=== PATIENT | female | born 1970 | race Two or more races ===

== ENCOUNTER 2020-10-16 18:14 | Inpatient (IN) | payer OTHER ==
[~2020-10-16] VITALS: Ht 160 cm; Wt 77.1 kg
== END 2020-10-21 12:56 | disposition home or self-care (01) | DRG 392 ==
LOC: ER 18:14 → MEDJ 10-17 10:05 → SEC-K 10-17 10:05 → MEDJ 10-17 14:14
PROVIDERS: ADMIT Internal Medicine; ATTEND Internal Medicine
PROC: BW21ZZZ Computerized Tomography (CT Scan) of Abdomen and Pelvis (ICD-10-PCS; principal; 2020-10-16)
PROC: 4A033R1 Measurement of Arterial Saturation, Peripheral, Percutaneous Approach (ICD-10-PCS; 2020-10-18)
PROC: B24BZZZ Ultrasonography of Heart with Aorta (ICD-10-PCS; 2020-10-18)
DX: K52.89 Other specified noninfective gastroenteritis and colitis (principal); K92.1 Melena; C56.9 Malignant neoplasm of unspecified ovary; C78.6 Secondary malignant neoplasm of retroperitoneum and peritoneum; K55.9 Vascular disorder of intestine, unspecified; Z20.822 Contact with and (suspected) exposure to COVID-19; R06.02 Shortness of breath; D72.828 Other elevated white blood cell count; E87.6 Hypokalemia; I99.8 Other disorder of circulatory system; R10.2 Pelvic and perineal pain; R10.9 Unspecified abdominal pain

== ENCOUNTER 2023-01-21 21:19 | Inpatient (IN) | payer OTHER ==
[~2023-01-21] VITALS: Ht 162.6 cm; Wt 59.9 kg
--- NOTE | 2023-01-21 21:32 | NUR ---
SE RECIBE FEMINA ALERTA Y ORIENTADA X3 EN AMBULANCIA QUIEN REFIERE DOLOR ABDOMINAL DESDE OLGA. PTE CON CA DE OVARIOS. PTE DE DR DOROTEO TREJO. SE MIDEN S/V Y SE UBICA.
--- NOTE | 2023-01-22 00:17 | NUR ---
Zackary BENAVIDEZ EDUCA A PTE SOBRE TX MEDICO. SE LIA MUESTRAS DE LABORATORIO UTILIZANDO MEDIDAS ASEPTICAS. SE COLOCA H/L MANUEL DE EDEMA. SE ADMINISTRAN MEDICAMENTOS LOS CUALES TOLERA. PTE SE COTNINUA MONITORIANDO POR CAMBIOS.
--- NOTE | 2023-01-22 01:42 | NUR ---
RN BENAVIDEZ COLOCA SONDA URINARIA A PACIENTE POR ORDEN MEDICA BAJO MEDIDAS ESTERILES, YA QUE PACIENTE NO PUEDE PONERSE EN PIE Y CAMINAR.
--- NOTE | 2023-01-22 06:19 | NUR ---
PTE REFIERE PRESENTAR DOLOR SE LE PRESENTA A DOCTOR EL CUAL COLOCA ORDEN DE MEDICAMENTO, SE LE COLOCA MEDICAMENTO ROBERTO ORDEN MEDICA.
--- NOTE | 2023-01-22 07:11 | NUR ---
SE RECIBE PTE ALERTA Y ORIENTADA EN DOMINIQUE BAJA CON BARANDAS ELEVADAS POR SEGURIDAD. SE OBSERVA CON BUEN PATRON RESPIRATORIO. PTE RECIBIENDO IV FLUIDS ORDENADOS. AREA DE VENOPUNCION MANUEL DE EDEMA Y ERITEMA. PEND CONS. LOPEZ LAUREN.
[2023-01-28] MEDS ORDERED: ZEJULA100 MG (08:44)
[2023-01-28] MEDS ORDERED: DEXAMETHASONE4 MG (08:44)
[2023-02-04] MEDS ORDERED: GLYCOPYRROLATE2 MG PO (14:15)
[2023-02-04] MEDS ORDERED: AMOX1TAB5 PO (14:15)
[2023-02-04] MEDS ORDERED: PRE PROTEIN1 EACH PO (14:15)
[2023-02-04] MEDS ORDERED: PROTONIX40 MG PO (14:15)
== END 2023-02-04 15:39 | disposition home or self-care (01) | DRG 843 ==
LOC: ER 21:19 → MEDI 01-22 11:18 → SEC-K 01-22 11:18 → MEDI 01-22 12:04 → MEDJ 01-22 17:55
PROVIDERS: General Practice; Internal Medicine; ADMIT Internal Medicine; ATTEND Internal Medicine
PROC: BW21YZZ Computerized Tomography (CT Scan) of Abdomen and Pelvis using Other Contrast (ICD-10-PCS; principal; 2023-01-21)
PROC: 02HV33Z Insertion of Infusion Device into Superior Vena Cava, Percutaneous Approach (ICD-10-PCS; 2023-01-23)
PROC: 3E0436Z Introduction of Nutritional Substance into Central Vein, Percutaneous Approach (ICD-10-PCS; 2023-01-23)
PROC: 30243N1 Transfusion of Nonautologous Red Blood Cells into Central Vein, Percutaneous Approach (ICD-10-PCS; 2023-01-23)
PROC: BW21YZZ Computerized Tomography (CT Scan) of Abdomen and Pelvis using Other Contrast (ICD-10-PCS; 2023-02-01)
DX: C79.89 Secondary malignant neoplasm of other specified sites (principal); K65.1 Peritoneal abscess; C56.9 Malignant neoplasm of unspecified ovary; K63.2 Fistula of intestine; L03.311 Cellulitis of abdominal wall; E87.0 Hyperosmolality and hypernatremia; C78.6 Secondary malignant neoplasm of retroperitoneum and peritoneum; G89.3 Neoplasm related pain (acute) (chronic); D64.89 Other specified anemias; D63.0 Anemia in neoplastic disease; B96.20 Unspecified Escherichia coli [E. coli] as the cause of diseases classified elsewhere; B96.89 Other specified bacterial agents as the cause of diseases classified elsewhere; E87.6 Hypokalemia; Z92.21 Personal history of antineoplastic chemotherapy; Z90.13 Acquired absence of bilateral breasts and nipples

== ENCOUNTER 2023-02-05 22:05 | Inpatient (IN) | payer OTHER ==
[~2023-02-05] VITALS: Ht 162.6 cm; Wt 49.9 kg
[~2023-02-05 22:05] MED LIST: AMOX1TAB5 PO; DEXAMETHASONE4 MG; GLYCOPYRROLATE2 MG PO; PRE PROTEIN1 EACH PO; PROTONIX40 MG PO; ZEJULA100 MG
[2023-02-06] MEDS ORDERED: PANTOPRAZOLE SO40 MG (13:23)
[2023-02-06] MEDS ORDERED: DEXAMETHASONE4 MG (13:24)
[2023-02-06] MEDS ORDERED: ZEJULA100 MG (13:24)
[2023-02-24] MEDS ORDERED: PANTOPRAZOLE SO40 MG PO (12:37)
[2023-02-24] MEDS ORDERED: SIMETHICONE125 M1 PO (12:37)
[2023-02-24] MEDS ORDERED: INTESTINEX680 M1 PO (12:37)
[2023-02-24] MEDS ORDERED: DEXAMETHASONE4 MG PO (12:38)
== END 2023-02-24 16:24 | disposition home or self-care (01) | DRG 981 ==
LOC: ER 22:05 → SEC-K 02-06 10:17 → SURH 02-06 10:17 → MEDI 02-06 11:50 → SEC-K 02-06 14:23 → SURH 02-06 14:57
PROVIDERS: General Practice; ADMIT Internal Medicine; ATTEND Internal Medicine
PROC: 02HV33Z Insertion of Infusion Device into Superior Vena Cava, Percutaneous Approach (ICD-10-PCS; 2023-02-06)
PROC: 0JD80ZZ Extraction of Abdomen Subcutaneous Tissue and Fascia, Open Approach (ICD-10-PCS; principal; 2023-02-13)
DX: C78.6 Secondary malignant neoplasm of retroperitoneum and peritoneum (principal); K65.1 Peritoneal abscess; C56.9 Malignant neoplasm of unspecified ovary; K63.2 Fistula of intestine; E86.0 Dehydration; K52.89 Other specified noninfective gastroenteritis and colitis; E87.6 Hypokalemia; I10 Essential (primary) hypertension

== ENCOUNTER 2023-03-03 06:41 | Emergency (ER) | payer OTHER ==
[~2023-03-03] VITALS: Ht 162.6 cm; Wt 58.1 kg
[~2023-03-03 06:41] MED LIST changes: +DEXAMETHASONE4 MG PO; +INTESTINEX680 M1 PO; +PANTOPRAZOLE SO40 MG; +PANTOPRAZOLE SO40 MG PO; +SIMETHICONE125 M1 PO
[2023-03-03 10:57] LABS: HEMATOCRIT 27.6 % (36.0-45.00); HEMOGLOBIN 9.3 g/dL (12.0-15.00); MEAN CELL VOLUME 82.4 fL (80.00-100.00); MEAN CORPUSCULAR HEMOGLOBIN 27.8 pg (27.00-32.0); MEAN CORPUSCULAR HGB CONC 33.7 g/dl (32.0-36.0); PLATELET COUNT 264 K/uL (150-450); RED BLOOD COUNT 3.34 M/uL (4.00-6.00); RED CELL DISTRIBUTION WIDTH 18.2 % (11.5-14.5)
[2023-03-03 11:09] LABS: CALCIUM 8.6 mg/dL (8.5-10.1); CREATININE SERUM 0.55 mg/dL (0.55-1.02); GFR 114.75; POTASSIUM 3.27 mEq/L (3.5-5.1)
[2023-03-03 11:44] LABS: PARTIAL THROMBOPLASTIN TIME 27.8 SECONDS (22.0-34.0)
== END 2023-03-03 19:56 | disposition home or self-care (01) ==
LOC: ER 06:41
PROVIDERS: Emergency Medicine
DX: L98.8 Other specified disorders of the skin and subcutaneous tissue (principal); Z88.8 Allergy status to other drugs, medicaments and biological substances

== ENCOUNTER 2023-03-05 12:41 | Inpatient (IN) | payer OTHER ==
[~2023-03-05] VITALS: Ht 152.4 cm; Wt 58.1 kg
[2023-03-05 15:33] LABS: HEMATOCRIT 29.4 % (36.0-45.00); HEMOGLOBIN 9.4 g/dL (12.0-15.00); MEAN CORPUSCULAR HEMOGLOBIN 26.8 pg (27.00-32.0); MEAN CORPUSCULAR HGB CONC 31.9 g/dl (32.0-36.0); PLATELET COUNT 316 K/uL (150-450); RED BLOOD COUNT 3.51 M/uL (4.00-6.00); RED CELL DISTRIBUTION WIDTH 17.9 % (11.5-14.5)
[2023-03-05 15:59] LABS: INR 1.07; PARTIAL THROMBOPLASTIN TIME 27.9 SECONDS (22.0-34.0); PROTHROMBIN TIME 11.2 SECONDS (9.0-11.5)
[2023-03-05 16:03] LABS: ALBUMIN 2.1 gm/dL (3.4-5.0); BILIRUBIN TOTAL 0.29 mg/dL (0.3-1.2); CREATININE SERUM 0.62 mg/dL (0.55-1.02); GFR 99.93; GLOBULINA 4.5 G/DL (2.4-3.5); POTASSIUM 3.23 mEq/L (3.5-5.1); TOTAL PROTEIN 6.6 gm/dL (6.4-8.2)
[2023-03-05 20:58] LABS: URINE APPEARANCE Clear; URINE BILIRRUBIN Negative (NEGATIVE); URINE BLOOD Negative; URINE COLOR Dark Yellow; URINE GLUCOSE Negative (NEGATIVE); URINE LEUKOCYTE Negative; URINE NITRATE Negative; URINE PROTEIN 30 (NEGATIVE); URINE UROBILINOGEN 0.2 E.U./dl
[2023-03-05 21:00] LABS: URINE BACTERIA 38.6 uL (0.0-1933); URINE EPITHELIAL CELLS 13.9 uL (0.0-38.8); URINE RBC 14.8 uL (0.0-20.8); URINE WBC 9.5 uL (0.0-23.2)
[2023-03-06 15:08] LABS: CREATININE SERUM 0.48 mg/dL (0.55-1.02); GFR 134.27; POTASSIUM 3.53 mEq/L (3.5-5.1)
[2023-03-09 08:07] LABS: HEMATOCRIT 28.2 % (36.0-45.00); HEMOGLOBIN 9.4 g/dL (12.0-15.00); MEAN CELL VOLUME 83.6 fL (80.00-100.00); MEAN CORPUSCULAR HEMOGLOBIN 27.8 pg (27.00-32.0); MEAN CORPUSCULAR HGB CONC 33.3 g/dl (32.0-36.0); PLATELET COUNT 312 K/uL (150-450); RED BLOOD COUNT 3.37 M/uL (4.00-6.00); RED CELL DISTRIBUTION WIDTH 17.7 % (11.5-14.5)
[2023-03-09 08:25] LABS: INR 1.04; PARTIAL THROMBOPLASTIN TIME 26.3 SECONDS (22.0-34.0); PROTHROMBIN TIME 10.9 SECONDS (9.0-11.5)
[2023-03-09 08:35] LABS: ALBUMIN 2.1 gm/dL (3.4-5.0); BILIRUBIN TOTAL 0.31 mg/dL (0.3-1.2); BILIRUBIN,CONJUGATED 0.12 mg/dL (0.0-0.2); BILIRUBIN,UNCONJUGATED 0.19 mg/dL (0.0-0.6); CALCIUM 8.2 mg/dL (8.5-10.1); CHOL HDL RATIO 4.9 (0-5.0); CREATININE SERUM 0.46 mg/dL (0.55-1.02); GFR 141.03; MAGNESIUM 1.9 mg/dL (1.8-2.4); POTASSIUM 3.43 mEq/L (3.5-5.1); TOTAL PROTEIN 5.8 gm/dL (6.4-8.2)
[2023-03-11 08:27] LABS: HEMATOCRIT 26.3 % (36.0-45.00); MEAN CELL VOLUME 82.9 fL (80.00-100.00); MEAN CORPUSCULAR HGB CONC 33.8 g/dl (32.0-36.0); PLATELET COUNT 286 K/uL (150-450); RED BLOOD COUNT 3.17 M/uL (4.00-6.00); RED CELL DISTRIBUTION WIDTH 17.4 % (11.5-14.5)
[2023-03-11 08:40] LABS: HEMOGLOBIN 8.9 g/dL (12.0-15.00)
[2023-03-11 08:46] LABS: CALCIUM 7.7 mg/dL (8.5-10.1); CREATININE SERUM 0.47 mg/dL (0.55-1.02); GFR 137.57; POTASSIUM 3.88 mEq/L (3.5-5.1)
[2023-03-13 11:22] LABS: HEMATOCRIT 26.7 % (36.0-45.00); MEAN CELL VOLUME 84.2 fL (80.00-100.00); MEAN CORPUSCULAR HGB CONC 32.2 g/dl (32.0-36.0); PLATELET COUNT 302 K/uL (150-450); RED BLOOD COUNT 3.17 M/uL (4.00-6.00); RED CELL DISTRIBUTION WIDTH 17.5 % (11.5-14.5)
[2023-03-13 11:24] LABS: HEMOGLOBIN 8.6 g/dL (12.0-15.00); MEAN CORPUSCULAR HEMOGLOBIN 27.1 pg (27.00-32.0)
[2023-03-13 11:54] LABS: ALBUMIN 1.8 gm/dL (3.4-5.0); BILIRUBIN TOTAL 0.28 mg/dL (0.3-1.2); CALCIUM 7.8 mg/dL (8.5-10.1); CREATININE SERUM 0.49 mg/dL (0.55-1.02); GFR 131.12; GLOBULINA 3.4 G/DL (2.4-3.5); POTASSIUM 3.94 mEq/L (3.5-5.1); TOTAL PROTEIN 5.2 gm/dL (6.4-8.2)
[2023-03-16 15:08] LABS: HEMATOCRIT 30.2 % (36.0-45.00); HEMOGLOBIN 9.4 g/dL (12.0-15.00); MEAN CELL VOLUME 84.6 fL (80.00-100.00); MEAN CORPUSCULAR HEMOGLOBIN 26.3 pg (27.00-32.0); MEAN CORPUSCULAR HGB CONC 31.1 g/dl (32.0-36.0); PLATELET COUNT 317 K/uL (150-450); RED BLOOD COUNT 3.58 M/uL (4.00-6.00); RED CELL DISTRIBUTION WIDTH 17.7 % (11.5-14.5)
[2023-03-16 15:33] LABS: ALBUMIN 1.8 gm/dL (3.4-5.0); BILIRUBIN TOTAL 0.46 mg/dL (0.3-1.2); BILIRUBIN,CONJUGATED 0.22 mg/dL (0.0-0.2); BILIRUBIN,UNCONJUGATED 0.24 mg/dL (0.0-0.6); CALCIUM 7.9 mg/dL (8.5-10.1); CHOL HDL RATIO 3.1 (0-5.0); CREATININE SERUM 0.65 mg/dL (0.55-1.02); GFR 94.63; GLOBULINA 3.6 G/DL (2.4-3.5); POTASSIUM 3.61 mEq/L (3.5-5.1); TOTAL PROTEIN 5.4 gm/dL (6.4-8.2)
[2023-03-16 18:45] LABS: INR 1.04; PARTIAL THROMBOPLASTIN TIME 29.9 SECONDS (22.0-34.0); PROTHROMBIN TIME 10.9 SECONDS (9.0-11.5)
[2023-03-20 08:28] LABS: HEMATOCRIT 24.7 % (36.0-45.00); MEAN CELL VOLUME 82.3 fL (80.00-100.00); MEAN CORPUSCULAR HGB CONC 33.9 g/dl (32.0-36.0); PLATELET COUNT 162 K/uL (150-450); RED CELL DISTRIBUTION WIDTH 18.1 % (11.5-14.5)
[2023-03-20 08:35] LABS: HEMOGLOBIN 8.4 g/dL (12.0-15.00)
[2023-03-20 08:52] LABS: ALBUMIN 1.6 gm/dL (3.4-5.0); BILIRUBIN TOTAL 0.27 mg/dL (0.3-1.2); CREATININE SERUM 0.78 mg/dL (0.55-1.02); GFR 76.68; GLOBULINA 3.5 G/DL (2.4-3.5); POTASSIUM 3.29 mEq/L (3.5-5.1); TOTAL PROTEIN 5.1 gm/dL (6.4-8.2)
[2023-03-22 09:02] LABS: ALBUMIN 1.7 gm/dL (3.4-5.0); CALCIUM 8.2 mg/dL (8.5-10.1); CREATININE SERUM 0.57 mg/dL (0.55-1.02); GFR 110.12; MAGNESIUM 2.2 mg/dL (1.8-2.4); PHOSPHOROUS 2.3 mg/dL (2.5-4.9); POTASSIUM 3.41 mEq/L (3.5-5.1)
[2023-03-23 08:35] LABS: HEMATOCRIT 24.9 % (36.0-45.00); MEAN CELL VOLUME 82.7 fL (80.00-100.00); MEAN CORPUSCULAR HEMOGLOBIN 27.5 pg (27.00-32.0); MEAN CORPUSCULAR HGB CONC 33.2 g/dl (32.0-36.0); PLATELET COUNT 153 K/uL (150-450); RED BLOOD COUNT 3.01 M/uL (4.00-6.00); RED CELL DISTRIBUTION WIDTH 18.2 % (11.5-14.5)
[2023-03-23 08:54] LABS: HEMOGLOBIN 8.3 g/dL (12.0-15.00)
[2023-03-23 09:06] LABS: INR 1.08; PROTHROMBIN TIME 11.3 SECONDS (9.0-11.5)
[2023-03-23 09:10] LABS: ALBUMIN 1.6 gm/dL (3.4-5.0); BILIRUBIN TOTAL 0.28 mg/dL (0.3-1.2); BILIRUBIN,CONJUGATED 0.12 mg/dL (0.0-0.2); BILIRUBIN,UNCONJUGATED 0.16 mg/dL (0.0-0.6); CHOL HDL RATIO 4.7 (0-5.0); CREATININE SERUM 0.54 mg/dL (0.55-1.02); GFR 117.21; GLOBULINA 3.3 G/DL (2.4-3.5); MAGNESIUM 1.9 mg/dL (1.8-2.4); POTASSIUM 3.42 mEq/L (3.5-5.1); TOTAL PROTEIN 4.9 gm/dL (6.4-8.2)
[2023-03-23 09:15] LABS: UREA CLEARANCE 48.6 ML/MIN
[2023-03-26 10:37] LABS: HEMATOCRIT 33.6 % (36.0-45.00); HEMOGLOBIN 10.8 g/dL (12.0-15.00); MEAN CELL VOLUME 83.3 fL (80.00-100.00); MEAN CORPUSCULAR HEMOGLOBIN 26.9 pg (27.00-32.0); MEAN CORPUSCULAR HGB CONC 32.2 g/dl (32.0-36.0); RED BLOOD COUNT 4.03 M/uL (4.00-6.00); RED CELL DISTRIBUTION WIDTH 16.9 % (11.5-14.5)
[2023-03-26 11:01] LABS: ALBUMIN 1.6 gm/dL (3.4-5.0); BILIRUBIN TOTAL 0.74 mg/dL (0.3-1.2); CALCIUM 7.9 mg/dL (8.5-10.1); CREATININE SERUM 0.86 mg/dL (0.55-1.02); GFR 68.51; GLOBULINA 2.9 G/DL (2.4-3.5); POTASSIUM 3.34 mEq/L (3.5-5.1); TOTAL PROTEIN 4.5 gm/dL (6.4-8.2)
[2023-03-26 11:21] LABS: PLATELET COUNT 66 K/uL (150-450)
[2023-03-28 08:51] LABS: ALBUMIN 3.2 gm/dL (3.4-5.0); ALKALINE PHOSPHATASE 71 U/L (50-136); ALT/SGPT 11 U/L (12-78); ANION GAP 15 (10.0-20.0); BILIRUBIN TOTAL 0.64 mg/dL (0.3-1.2); BLOOD UREA NITROGEN 18 mg/dL (7-18); BUN CREA RATIO 28 (7.0-25.0); CALCIUM 8.3 mg/dL (8.5-10.1); CARBON DIOXIDE 33 mEq/L (21-32); CHLORIDE 93 mmol/L (98-107); CREATININE SERUM 0.64 mg/dL (0.55-1.02); GFR 96.34; GLOBULINA 1.8 G/DL (2.4-3.5); GLUCOSE FASTING 168 mg/dL (65-100); OSMOLALITY SERUM 281 MOSM/KG (275-295); PHOSPHOROUS 2.7 mg/dL (2.5-4.9); POTASSIUM 3.03 mEq/L (3.5-5.1); SODIUM 138 mmol/L (136-145)
[2023-03-28 08:55] LABS: AST/SGOT < 3 U/L (15-37)
[2023-03-28 11:32] LABS: MEAN CELL VOLUME 83.4 fL (80.00-100.00); MEAN CORPUSCULAR HGB CONC 34.3 g/dl (32.0-36.0); RED BLOOD COUNT 3.11 M/uL (4.00-6.00); RED CELL DISTRIBUTION WIDTH 17.1 % (11.5-14.5)
[2023-03-28 12:03] LABS: MEAN CORPUSCULAR HEMOGLOBIN 28.6 pg (27.00-32.0)
[2023-03-28 12:05] LABS: HEMOGLOBIN 8.9 g/dL (12.0-15.00)
[2023-03-28 12:17] LABS: PLATELET COUNT 23 K/uL (150-450)
[2023-03-29 08:08] LABS: CALCIUM 9.1 mg/dL (8.5-10.1); CREATININE SERUM 0.71 mg/dL (0.55-1.02); GFR 85.46; POTASSIUM 3.3 mEq/L (3.5-5.1)
[2023-03-29 08:48] LABS: HEMATOCRIT 33.1 % (36.0-45.00); HEMOGLOBIN 10.8 g/dL (12.0-15.00); MEAN CELL VOLUME 84.2 fL (80.00-100.00); MEAN CORPUSCULAR HEMOGLOBIN 27.5 pg (27.00-32.0); MEAN CORPUSCULAR HGB CONC 32.7 g/dl (32.0-36.0); RED BLOOD COUNT 3.93 M/uL (4.00-6.00)
[2023-03-29 10:04] LABS: PLATELET COUNT 15 K/uL (150-450)
[2023-03-30 06:44] LABS: INR 1.24; PARTIAL THROMBOPLASTIN TIME 25.7 SECONDS (22.0-34.0); PROTHROMBIN TIME 12.8 SECONDS (9.0-11.5)
[2023-03-30 06:50] LABS: ALBUMIN 3.2 gm/dL (3.4-5.0); BILIRUBIN TOTAL 0.78 mg/dL (0.3-1.2); BILIRUBIN,CONJUGATED 0.28 mg/dL (0.0-0.2); BILIRUBIN,UNCONJUGATED 0.5 mg/dL (0.0-0.6); CALCIUM 8.7 mg/dL (8.5-10.1); CREATININE SERUM 0.91 mg/dL (0.55-1.02); GFR 64.18; GLOBULINA 2.3 G/DL (2.4-3.5); MAGNESIUM 2.2 mg/dL (1.8-2.4); POTASSIUM 3.94 mEq/L (3.5-5.1); TOTAL PROTEIN 5.5 gm/dL (6.4-8.2)
[2023-03-30 07:06] LABS: HEMATOCRIT 26.9 % (36.0-45.00); HEMOGLOBIN 9.1 g/dL (12.0-15.00); MEAN CELL VOLUME 83.6 fL (80.00-100.00); MEAN CORPUSCULAR HEMOGLOBIN 28.4 pg (27.00-32.0); MEAN CORPUSCULAR HGB CONC 33.9 g/dl (32.0-36.0); RED BLOOD COUNT 3.22 M/uL (4.00-6.00); RED CELL DISTRIBUTION WIDTH 17.2 % (11.5-14.5)
[2023-03-30 08:24] LABS: PLATELET COUNT 8 K/uL (150-450)
[2023-03-31 14:24] LABS: CALCIUM 8.2 mg/dL (8.5-10.1); CREATININE SERUM 1.05 mg/dL (0.55-1.02); GFR 54.41; POTASSIUM 4.32 mEq/L (3.5-5.1)
[2023-04-01 02:35] LABS: MEAN CELL VOLUME 85.7 fL (80.00-100.00); MEAN CORPUSCULAR HGB CONC 33.2 g/dl (32.0-36.0); RED BLOOD COUNT 1.91 M/uL (4.00-6.00)
[2023-04-01 02:36] LABS: MEAN CORPUSCULAR HEMOGLOBIN 28.2 pg (27.00-32.0)
[2023-04-01 02:37] LABS: HEMATOCRIT 16.4 % (36.0-45.00); PLATELET COUNT 67 K/uL (150-450)
[2023-04-01 02:38] LABS: HEMOGLOBIN 5.4 g/dL (12.0-15.00)
== END 2023-04-02 01:39 | disposition expired | DRG 374 ==
LOC: ER 12:41 → SURH 18:25
PROVIDERS: General Practice; Internal Medicine; ADMIT Internal Medicine; ATTEND Internal Medicine
PROC: 3E0436Z Introduction of Nutritional Substance into Central Vein, Percutaneous Approach (ICD-10-PCS; 2023-03-06)
PROC: 3E0336Z Introduction of Nutritional Substance into Peripheral Vein, Percutaneous Approach (ICD-10-PCS; principal; 2023-03-08)
PROC: 0D9670Z Drainage of Stomach with Drainage Device, Via Natural or Artificial Opening (ICD-10-PCS; 2023-03-18)
PROC: 30233N1 Transfusion of Nonautologous Red Blood Cells into Peripheral Vein, Percutaneous Approach (ICD-10-PCS; 2023-03-25)
PROC: 30233R1 Transfusion of Nonautologous Platelets into Peripheral Vein, Percutaneous Approach (ICD-10-PCS; 2023-03-29)
DX: C78.6 Secondary malignant neoplasm of retroperitoneum and peritoneum (principal); K29.01 Acute gastritis with bleeding; K90.49 Malabsorption due to intolerance, not elsewhere classified; C79.60 Secondary malignant neoplasm of unspecified ovary; C79.9 Secondary malignant neoplasm of unspecified site; K63.2 Fistula of intestine; D62 Acute posthemorrhagic anemia; J90 Pleural effusion, not elsewhere classified; K56.609 Unspecified intestinal obstruction, unspecified as to partial versus complete obstruction; R45.851 Suicidal ideations; K21.9 Gastro-esophageal reflux disease without esophagitis; G89.3 Neoplasm related pain (acute) (chronic); R10.0 Acute abdomen; E86.0 Dehydration; E87.6 Hypokalemia; E83.42 Hypomagnesemia; D64.89 Other specified anemias; D69.6 Thrombocytopenia, unspecified; E88.09 Other disorders of plasma-protein metabolism, not elsewhere classified; R45.1 Restlessness and agitation; F43.21 Adjustment disorder with depressed mood; Z66 Do not resuscitate